=== PATIENT | male | born 1945 | race Caucasian/White ===

== ENCOUNTER 2017-06-19 11:51 | Day surgery (SDC) | payer OTHER, BC ==
--- NOTE | 2017-06-09 13:03 | GHP ---
[f rep st] PREOP HISTORY AND PHYSICAL DATE OF ADMISSION: 06/19/2017 DATE OF SURGERY: Monday, June 26, 2017. DIAGNOSIS: Left shoulder rotator cuff tear and subacromial impingement. OPERATIVE INTERVENTION: Left shoulder arthroscopic rotator cuff repair, labral debridement and subac romial decompression. HPI: Patient has a long history of left shoulder pain. Recent MRI showed a near full-thickness tear of the left rotator cuff. He failed a course of conservative treatment and the patient opts for noe gical intervention. PAST MEDICAL HISTORY: History of hernia, acid reflux, prostate disease, elevated cholesterol. PAST SURGICAL HISTORY: Orthopedic surgery in 1983 and hernia repair. MEDICATIONS: Valacyclovir, omeprazole, finasteride, rosuvastatin 40 mg, fluticasone nasal spray, and hydrocodone. SOCIAL HISTORY: No alcohol, tobacco, or drug use. PHYSICAL EXAM: GENERAL: He is alert, oriented. NECK: Supple. No carotid bruits are heard. CARDI AC: Shows a regular rate and rhythm. Normal S1, S2. PULMONARY: Lungs are clear bilaterally. ABDO MEN: Shows normoactive bowel sounds, nontender, nondistended. ASSESSMENT/PLAN: Patient has a long history of left shoulder pain secondary to rotator cuff tear. A fter failing a course of conservative treatment, he now opts for surgical intervention. /[id number]/MODL
--- NOTE | 2017-06-18 15:34 | GHP ---
[f rep st] PREOP HISTORY AND PHYSICAL DATE OF ADMISSION: 06/19/2017 DATE OF PLANNED PROCEDURE: 06/19/2017. ADMISSION DIAGNOSIS: Right shoulder rotator cuff tear. PLANNED PROCEDURE: Arthroscopic rotator cuff repair, right shoulder. HPI: The patient is a 71-year-old male with longstanding right shoulder pain that has failed conserv ative management. Decision has been made to move forward with a rotator cuff repair. PRIOR MEDICAL HISTORY: High cholesterol, reflux, hernia, and prostate disease. Prior surgical histo ry includes multiple orthopedic surgeries. SOCIAL HISTORY: He does not smoke. Occasional alcohol use. Exercises regularly. . [place] MEDICATIONS: Omeprazole 20 mg, rosuvastatin 40 mg. ALLERGIES: No known drug allergies. REVIEW OF SYSTEMS: No shortness of breath. No chest pain. Otherwise, review of systems is unremark able. PHYSICAL EXAMINATION: VITAL SIGNS: He is 5 feet 9 inches tall, weighs 145 pounds. Blood pressure i s 140/76, heart rate 56. GENERAL: Alert and oriented x3. HEENT: Normocephalic, atraumatic. Extra ocular muscles intact. NECK: Supple. No lymphadenopathy. No JVD. CHEST: Clear to auscultation. CARDIOVASCULAR: Regular rate and rhythm. ABDOMEN: Soft, nontender, nondistended. EXTREMITIES: N o atrophy in the supraspinatus, infraspinatus fossa. There is some tenderness over the long head of the biceps and anteriorly over the rotator interval. Active range of motion from full extension to 1 60 degrees of forward flexion, 75 degrees of internal and external rotation. He does have a positive impingement sign. Positive cross-body adduction sign, 1+ sulcus sign. Rotator cuff strength, supra spinatus and infraspinatus, are both 4- out of 5, subscapularis 4/5. IMAGING: MRI is reviewed. It shows a full-thickness supraspinatus tear with 3 cm of retraction. De generative tearing and fraying of the labrum. Biceps anchor is intact. There was some moderate arth ritis of the AC joint. ASSESSMENT: Full-thickness rotator cuff tear, right shoulder. PLAN: I recommend proceeding with an arthroscopic rotator cuff repair. He will be immobilized for 3 -6 weeks postoperatively in a sling and abduction pillow. Risks and benefits of the surgery includin g infection, need for additional surgery, failure of the repair, were all discussed. He understands these risks and wishes to proceed. We will plan on surgery Monday at the hospital, as preoperative p aperwork was completed. /[id number]/MODL
[2017-06-19] MEDS ORDERED: LIDOCAINE 1% 2 ML INJ ID PRN (12:05)
[2017-06-19] MEDS ORDERED: LR 1,000 ML IV ONE (12:05)
[2017-06-19] MEDS ORDERED: ceFAZolin 2 GM/SWFI 2 GM/20 ML SYR IVP ONE (12:05)
[2017-06-19] MEDS ORDERED: BUPIVACAINE/EPI 0.5% 30 ML SDV ONE (13:06)
[2017-06-19] MEDS ORDERED: EPINEPHrine 30 MG/30 ML MDV (0.1 MG/0.1 ML) ONE (13:07)
[2017-06-19] MEDS ORDERED: LIDO/EPI 1% **for epidural** 10 ML SDV ONE (13:10)
[2017-06-19] MEDS ORDERED: MIDAZOLAM 2 MG/2 ML VIAL IVP ONE (13:34)
[2017-06-19] MEDS ORDERED: PROPOFOL 200 MG/20 ML VIAL ONE (13:35)
[2017-06-19] MEDS ORDERED: fentaNYL 100 MCG/2 ML INJ ONE ×2 (13:35→15:47)
[2017-06-19] MEDS ORDERED: BUPIVACAINE 0.5% 30 ML SDV ONE (13:36)
--- NOTE | 2017-06-19 13:45 | PDANEPAE ---
ANE History of Present Illness right shoulder RTC ANE Past Medical History - Cardiovascular History Hx Hypertension: No Hx Arrhythmias: No Hx Chest Pain: No Hx Coronary Artery / Peripheral Vascular Disease: No Hx CHF / Valvular Disease: No Hx Palpitations: No - Pulmonary History Hx COPD: No Hx Asthma/Reactive Airway Disease: No Hx Recent Upper Respiratory Infection: No Hx Oxygen in Use at Home: No Hx Sleep Apnea: No Sleep Apnea Screening Result - Last Documented: Negative Pulmonary History Comment: Congestion with food additives - Neurologic History Hx Cerebrovascular Accident: Yes Hx Seizures: No Hx Dementia: No Neurologic History Comment: TIA 2010 - Endocrine History Hx Diabetes: No Hypothyroid: No Hyperthyroid: No Obesity: no - Renal History Hx Renal Disorders: No - Liver History Hx Hepatic Disorders: No - Neurological & Psychiatric Hx Hx Neurological and Psychiatric Disorders: No - Cancer History Hx Cancer: No Cancer History Comment: Skin cancer removal- Squamous and Basal cell - Congenital Disorder History Hx Congenital Disorders: No - GI History GERD: mild Hx Gastrointestinal Disorders: No Gastrointestinal History Comment: Minor GERD - Other Health History Other Health History: Developing cataracts. L2-L5 herniated discs- limited bending and lifting - Chronic Pain History Chronic Pain: No - Surgical History Prior Surgeries: Medial Meniscus repair 2001 ANE Review of Systems Review of systems is: negative Review of Systems: - Exercise capacity METS (RN): 5 METS ANE Patient History - Allergies Allergies/Adverse Reactions: No Known Allergies Allergy (Unverified 03/21/14 14:25) - Home Medications Home medications: home medication list seen and reviewed Home Medications: Aspirin 325 mg (OTC) 03/21/14 [Last Taken 1 Week Ago ~06/12/17] Crestor 03/21/14 [Last Taken 06/19/17 07:00] Albuterol 06/07/17 [Last Taken 2 Weeks Ago ~06/05/17] Finasteride 06/07/17 [Last Taken 06/19/17 07:00] Flonase Nasal [place] 06/07/17 [Last Taken 06/19/17 07:00] Prilosec 20 mg 06/07/17 [Last Taken 06/19/17 07:00] - NPO status NPO Since - Liquids (Date): 06/19/17 NPO Since - Liquids (Time): 07:00 NPO Since - Solids (Date): 06/18/17 NPO Since - Solids (Time): 19:30 - Smoking Hx Smoking Status: Former smoker - Family Anes Hx Family Hx Anesthesia Complications: NA ANE Labs/Vital Signs - Vital Signs Blood Pressure: 134/86 Heart Rate: 54 Respiratory Rate: 18 O2 Sat (%): 96 Height: 172.72 cm Weight: 65.771 kg ANE Physical Exam - Airway Neck exam: FROM Mallampati Score: Class 1 Mouth exam: normal dental/mouth exam - Pulmonary Pulmonary: no respiratory distress - Cardiovascular Cardiovascular: regular rate and rhythym - ASA Status ASA Status: II ANE Anesthesia Plan Anesthesia Plan: GA w LMA Regional Anesthesia: single shot NB, interscalene BP NB
[2017-06-19] MEDS ORDERED: CALCIUM CHLORIDE 1 GM/10 ML INJ ONE (14:13)
[2017-06-19] MEDS ORDERED: THROMBIN (BOVINE) 5,000 UNIT VIAL TP ONE (14:13)
[2017-06-19] MEDS ORDERED: DEXAMETHASONE 4 MG/ML VIAL ONE (14:23)
[2017-06-19] MEDS ORDERED: LIDOCAINE 2% 100 MG/5 ML SYR ONE (14:23)
[2017-06-19] MEDS ORDERED: ONDANSETRON 4 MG/2 ML VIAL ONE (14:23)
[2017-06-19] MEDS ORDERED: PHENYLEPHRINE HCL 100 MCG/ML SYR ONE (14:23)
[2017-06-19] MEDS ORDERED: HYDROmorphONE/DILAUDID 1 MG/ML INJ IVP PRN (15:00)
[2017-06-19] MEDS ORDERED: ACETAMINOPHEN 500 MG TAB PO PRN (15:00)
[2017-06-19] MEDS ORDERED: HYDROCODONE/APAP 5/325 TAB PO PRN (15:00)
[2017-06-19] MEDS ORDERED: PROMETHAZINE HCL 25 MG/ML INJ IVP PRN (15:00)
[2017-06-19] MEDS ORDERED: ALBUTEROL 3 ML DEYVIAL IH PRN (15:00)
[2017-06-19] MEDS ORDERED: OXYCODONE/APAP 5/325 TAB PO PRN (15:00)
[2017-06-19] MEDS ORDERED: NALOXONE HCL 0.4 MG/ML INJ IVP PRN (15:00)
[2017-06-19] MEDS ORDERED: ONDANSETRON 4 MG/2 ML VIAL IVP PRN (15:00)
--- NOTE | 2017-06-19 15:37 | POSTANESTH ---
Post Anesthetic Evaluation Cardiovascular Status: Normal, Stable Respiratory Status: Normal, Stable Level of Consciousness/Mental Status: Can Participate in Eval Pain Control: Adequate, Prn Tx Ordered Nausea/Vomiting Control: Adequate, Prn Tx Ordered Complications Possibly Related to Anesthesia: None Noted
--- NOTE | 2017-06-19 15:42 | POSTOPPROG ---
Post Op Note Date of Operation: 06/19/17 Surgeon: Chuy Rees Anesthesia: GET(General Endotracheal) Pre-op Diagnosis: Rt RC tear Post-op Diagnosis: same Procedure: 1. RC repair 2. labral debridement 3. GH chondro 4. labral pauly Inf/Abcess present in the surg proc area at time of surgery?: No EBL: Minimal Complications: none
[2017-06-19] MEDS: fentaNYL 100 MCG/2 ML INJ IVP PRN ×2 (15:50→16:05)
[2017-06-19] MEDS ORDERED: OXYCODONE/APAP 5/325 TAB ONE (16:01)
[2017-06-19 16:17] VITALS: TEMP 97.3
[2017-06-19 16:34] VITALS: BP 124/81; PULSE 58; RESP 18; O2SAT 90
--- NOTE | 2017-06-19 20:14 | GOP ---
[f rep st] OPERATIVE REPORT DATE OF OPERATION: 06/19/2017 SURGEON: Chuy Rees MD [employer]IT [employer] OFFICER: Alfredo Bonilla, [employer], [facility]. ANESTHESIA: Interscalene block with general. PREOPERATIVE DIAGNOSIS: Right shoulder rotator cuff tear. POSTOPERATIVE DIAGNOSIS: Right shoulder rotator cuff tear. PROCEDURE PERFORMED: 1. Arthroscopic rotator cuff repair. 2. Labral debridement. 3. Subacromial decompression. 4. Glenohumeral chondroplasty. FINDINGS: ESTIMATED BLOOD LOSS: Minimal. INDICATIONS: The patient is a 71-year-old male, who sustained a rotator cuff tear. Decision was mad e to proceed with a rotator cuff repair. DESCRIPTION OF PROCEDURE: After written informed consent was obtained, the patient was taken to the operating room, placed supine on the operating table. Interscalene block was placed followed by gene ral endotracheal tube anesthesia. He was then positioned in beach chair position with all bony promi nences well padded. Right upper extremity was prepped and draped in usual sterile fashion. I instil led 30 mL of 1% lidocaine with epinephrine and 30 mL of normal saline through a standard posterior po rtal. I made a small agueda incision and introduced the camera through a standard posterior portal. I obtained a standard anterior portal under direct visualization and placed a 4.5 mm plastic working c annula through there. Inspection of glenohumeral joint showed some mild superior and anterior degene rative labral fraying as well as inferiorly. This was debrided back with a motorized shaver. There was some chondral delamination at the inferior aspect of the glenoid and I debrided that with the mot orized shaver. The humeral head articular cartilage was in good shape. Looking at the undersurface of the rotator cuff, he had a full-thickness tear of the supraspinatus. I repositioned the camera in the subacromial space, obtained a standard lateral portal under direct visualization. Placed an 8 m m plastic working cannula through there. Debrided the footprint with a motorized shaver and a bur. The anterior cannula was moved superiorly into the subacromial space as a working portal to shuttle s uture. We then placed a medial row after we had punched our hole. Suture was then brought back out on the lateral side. Then using the scorpion suture passing device passed back through the rotator c uff. This was brought out the anterior portal and repeated again for a posterior suture. Suture was cut. Ends were crisscrossed and brought out the lateral portal. Two additional lateral row anchors were placed, and the rotator cuff was securely fixed back to the footprint. Excess suture was devon ed. I then performed a subacromial decompression using a motorized shaver and bur. Again, at the di stal end of the clavicle he had good space there, so instruments were withdrawn. Portal incisions we re closed with 3-0 nylon. I instilled 10 mL of PRP at the repair site. The patient was awakened fro m anesthesia after sterile dressing and a sling and abduction pillow were applied. Taken to recovery room in satisfactory condition. There were no immediate intraoperative complications. Franklin Bonilla 's assistance was required throughout the entire case. COMPLICATIONS: None. DRAINS: None. IMPLANTS USED: Arthrex 4.5 mm SwiveLock anchors x4. /[id number]/MODL
== END 2017-06-19 16:58 | disposition home or self-care (01) ==
LOC: FSGY 11:51
PROVIDERS: ATTEND Orthopaedic Surgery
PROC: 0LQ14ZZ Repair Right Shoulder Tendon, Percutaneous Endoscopic Approach (ICD-10-PCS; principal; 2017-06-19 13:45)
PROC: 0MB14ZZ Excision of Right Shoulder Bursa and Ligament, Percutaneous Endoscopic Approach (ICD-10-PCS; principal; 2017-06-19 13:45)
DX: M75.111 Incomplete rotator cuff tear or rupture of right shoulder, not specified as traumatic (principal); M19.011 Primary osteoarthritis, right shoulder; M75.41 Impingement syndrome of right shoulder
CPT/HCPCS: C1713; J0171; J0690; J1100; J2001; J2250; J2370; J2405; J2704; J3010